=== PATIENT | female | born 1985 | race Hispanic/Latino ===

== ENCOUNTER 2018-09-20 13:10 | Emergency (ER) | payer OTHER ==
[2018-09-20] MEDS ORDERED: OCTYL 2-CYANOACRYLATE 1 EACH TP ONE (14:11)
[2018-09-20] MEDS ORDERED: TETANUS/DIPHTHERIA TOXOID [ADULT] 0.5 ML VIAL IM ONE (14:11)
== END 2018-09-20 14:39 | disposition home or self-care (01) ==
LOC: EDH 13:10
DX: S71.012A Laceration without foreign body, left hip, initial encounter (principal); Z91.040 Latex allergy status; W22.01XA Walked into wall, initial encounter; Y93.89 Activity, other specified; Y92.89 Other specified places as the place of occurrence of the external cause; Y99.8 Other external cause status
CPT/HCPCS: 12031; 90471; 90714

== ENCOUNTER 2018-12-20 10:56 | Emergency (ER) | payer OTHER | END 2018-12-20 11:32 | disposition home or self-care (01) | LOC: EDH 10:56 | DX: L50.9 Urticaria, unspecified (principal); Z90.710 Acquired absence of both cervix and uterus; Z91.040 Latex allergy status ==

== ENCOUNTER 2019-06-11 22:36 | Emergency (ER) | payer OTHER | END 2019-06-11 23:43 | disposition home or self-care (01) | LOC: EDH 22:36 | DX: J02.9 Acute pharyngitis, unspecified (principal); Z90.710 Acquired absence of both cervix and uterus; Z91.040 Latex allergy status | CPT/HCPCS: 87880 ==

== ENCOUNTER 2022-04-24 13:58 | Emergency (ER) | payer OTHER ==
[~2022-04-24] VITALS: Ht 152.4 cm; Wt 74.8 kg
[2022-04-24 15:00] LABS: APPEARANCE,URINE CLEAR (CLEAR); BILIRUBIN,URINE NEGATIVE (NEGATIVE); COLOR,URINE YELLOW (YELLOW); GLUCOSE, URINE (UA) NEGATIVE (NEGATIVE); KETONES,URINE NEGATIVE (NEGATIVE); LEUKOCYTE ESTERASE ,URINE NEGATIVE Leu/uL (NEGATIVE); NITRATE,URINE NEGATIVE (NEGATIVE); OCCULT BLOOD,URINE NEGATIVE (NEGATIVE); PH,URINE 5.5 (5.0-8.0); PROTEIN,URINE NEGATIVE (NEGATIVE); UROBILINOGEN,URINE 0.2 mg/dL (0.2-1.0)
[2022-04-24] MEDS ORDERED: ONDANSETRON 4MG INJ IVP ONE (15:00)
[2022-04-24] MEDS ORDERED: 0.9%NACL 1000ML 1,000 ML IV ONE (15:00)
[2022-04-24] MEDS ORDERED: MECLIZINE HCL 25 MG TABLET PO ONE (15:00)
[2022-04-24 15:01] LABS: BASOPHILS % (AUTO) 0.6 % (0.0-5.0); EOSINOPHILS % (AUTO) 1.5 % (0.0-8.0); HCG,QUALITATIVE URINE NEGATIVE (NEGATIVE); HEMATOCRIT 42.8 % (36-48); LYMPHOCYTES % (AUTO) 34.9 % (21.0-51.0); MEAN CORPUSCULAR HEMOGLOBIN 31.5 pg (27.0-33.0); MEAN CORPUSCULAR HGB CONC 34.3 g/dL (32.0-36.0); MEAN CORPUSCULAR VOLUME 91.8 fL (79-99); MONOCYTES % (AUTO) 7.7 % (3.0-13.0); PLATELET COUNT (AUTO) 230 K/uL (130-400); RED BLOOD CELL COUNT(AUTO) 4.66 MIL/uL (4.00-5.50); RED CELL DISTRIBUTION WIDTH 11.3 % (11.0-15.5); WHITE BLOOD COUNT (AUTO) 7.1 K/uL (4.8-10.8)
[2022-04-24] MEDS ORDERED: MECLIZINE HCL 25 MG TABLET ONE (15:03)
[2022-04-24] MEDS ORDERED: ONDANSETRON 4MG INJ ONE (15:04)
[2022-04-24 15:50] LABS: CREATININE 0.6 mg/dL (0.5-1.5); POTASSIUM 3.7 mmol/L (3.5-5.1)
[2022-04-24 15:56] LABS: ALBUMIN 3.9 g/dL (3.5-5.0); TOTAL PROTEIN, SERUM 7.5 g/dL (6.0-8.3)
[2022-04-24] MEDS ORDERED: MECL-226 PO (15:58)
[2022-04-24] MEDS ORDERED: IBUP-2070 PO (15:58)
[2022-04-24] MEDS ORDERED: DEXAMETHASONE SOD PHOSPHATE 4 MG/ML 1ML VIAL IVP ONE (16:00)
[2022-04-24] MEDS ORDERED: PENICILLIN G BENZATHINE LA 1.2 MILUNITS/2 ML SYG IM ONE (16:00)
[2022-04-24] MEDS ORDERED: KETOROLAC 15MG/ML VIAL (15MG/ML) IV ONE (16:00)
[2022-04-24 17:37] VITALS: BP 103/58
== END 2022-04-24 17:43 | disposition home or self-care (01) ==
LOC: EDH 13:58
DX: J02.0 Streptococcal pharyngitis (principal); R42 Dizziness and giddiness; Z20.822 Contact with and (suspected) exposure to COVID-19
CPT/HCPCS: 99284; 96374; 96375; 87635; 96361; 80053; 85025; 87880; 87804 ×2; 81003; 81025; 36415; 96372; J0561; J1100; C9803; J2405; J1885

== ENCOUNTER 2022-05-07 20:29 | Emergency (ER) | payer OTHER ==
[~2022-05-07] VITALS: Ht 149.9 cm; Wt 72.1 kg
[~2022-05-07 20:29] MED LIST: IBUP-2070 PO; MECL-226 PO
[2022-05-07 20:41] VITALS: BP 124/74
[2022-05-07] MEDS ORDERED: HYDR-3421 PO (20:47)
[2022-05-07] MEDS ORDERED: LORAZEPAM 1 MG TABLET PO ONE (21:00)
== END 2022-05-07 21:01 | disposition home or self-care (01) ==
LOC: EDH 20:29
DX: F41.9 Anxiety disorder, unspecified (principal); Z91.040 Latex allergy status; Z79.899 Other long term (current) drug therapy; Z98.890 Other specified postprocedural states